=== PATIENT | male | born 1955 | race Caucasian/White ===

== ENCOUNTER 2016-09-12 06:47 | Outpatient (CLI) ==
--- NOTE | 2016-09-13 13:46 | ECHO2D ---
Date of Exam: 09/12/16 Ordering Physician: ERNIE MURO Reason for Echo: CHEST PAIN, SOB M-Mode Normal Adult Results LV Dimensions Normal Adult Results AoV Opening excursions >1.6 >1.6 LVEDD-base- 3.5-5.8 5.0 Ao root dimensions 2.0-3.7 3.3 LVESD-base- 3.1-4.6 L. Atrium dimensions 1.9-3.8 4.5 Post. Wall thickness 0.8-1.1 1.3 IV septum (thickness) 0.7-1.2 1.4 Post. Wall excursion 0.72-1.3 NORMAL Septal motion 0.5 Systolic motion R. Ventricular cavity 1.5-2.0 2.5 LVEF 60% 52% Paradoxical septal wall motion MILD 2-D : ENLARGED LEFT ATRIAL CAVITY AND RIGHT VENTRICLE CAVITY--PARADOXICAL SEPTAL MOTION (MILD), NORMAL VALVES--NO EFFUSION, NO THROMBUS M-MODE: MV: NORMAL AV: NORMAL TV: NORMAL PV: CHAMBER SIZE: ENLARGED LEFT ATRIAL AND RIGHT VENTRICLE CAVITIES WALL MOTION: PARADOXICAL SEPTAL MOTION PERICARDIUM: NORMAL INTERPRETATION: 1. LEFT VENTRICULAR HYPERTROPHY--ENLARGED LEFT ATRIAL CAVITY 2. ENLARGED RIGHT VENTRICLE CAVITY 3. PARADOXICAL SEPTAL MOTION 4. LEFT VENTRICULAR EJECTION FRACTION 52% 5. NORMAL VALVES MTDD
== END 2016-09-12 06:48 | disposition home or self-care (01) ==
LOC: CAR 06:47
PROVIDERS: ATTEND Internal Medicine
DX: R07.9 Chest pain, unspecified (principal); R06.02 Shortness of breath
CPT/HCPCS: 93005; 93010

== ENCOUNTER 2016-09-13 06:54 | Outpatient (CLI) ==
[2016-09-13] MEDS: DOBUTAMINE 250 ML IV ONE (07:51)
[2016-09-13] MEDS: ATROPINE SULFATE PFS ONE (08:37)
--- NOTE | 2016-09-14 11:26 | DOBSTECHO ---
Ordering Physician: ERNIE MURO Date of Test: 09/13/16 Reason for Examination: CHEST PAIN, HYPERTENSION, SOB, CAD, CABG, PACEMAKER Current Medications: ROBAXIN,TRICOR, LISINOPRIL, PLAVIX, METOPROLOL, LOVAZA, OMEPRAZOLE, LIPITOR, NORCO, LASIX, ZOLPIDEM Height: 67" Weight: 235 LBS Target Heart Rate: 135/153 ST Segment Stage Time HR BPM BP mmhg Rhythm +/- Up Down Comments/Symptoms Control Sitting 61 128/70 SR X NONE Dobutamine 250mg/D5W 5cmg/KG/mn 10cmg/KG/mn 3" 74 SR X NONE 15cmg/KG/mn 2" 86 160/78 SR X NONE 20cmg/KG/mn 2" 73 SR X NONE 25cmg/KG/mn 2" 74 188/78 SR X NONE 30cmg/KG/mn 2" 86 176/80 SR X NONE 35cmg/KG/mn 2" 82 184/80 SR X NONE 40cmg/KG/mn 3:32 100 180/74 SR X NONE Time: 3" HR B/P Time: 6" HR B/P Time: 10" HR B/P Recovery 85 162/74 Recovery 70 148/76 Recovery 72 Total Time: 16:32 Maximum Heart Rate Reached: 100 Interpretation: 1. NO EVIDENCE OF ISCHEMIA FROM RESTING HEART RATE 61/BPM TO 100 BPM WITH DOBUTAMINE INFUSION 2. NO CHEST PAIN OR DISCOMFORT 3. HYPOKINETIC/PARADOXICAL SEPTAL AT REST AND WITH DOBUTAMINE INFUSION. MTDD
--- NOTE | 2016-09-14 11:29 | ECHOSTRESS ---
Date of Exam: 09/13/16 Ordering Physician: ERNIE MURO Reason for Echo: CHEST PAIN, SOA, CABG, PACEMAKER, HTN, DOBUTAMINE STRESS-NO ISCHEMIA M-Mode Normal Adult Results LV Dimensions Normal Adult Results AoV Opening excursions >1.6 LVEDD-base- 3.5-5.8 Ao root dimensions 2.0-3.7 LVESD-base- 3.1-4.6 L. Atrium dimensions 1.9-3.8 Post. Wall thickness 0.8-1.1 IV septum (thickness) 0.7-1.2 Post. Wall excursion 0.72-1.3 Septal motion Systolic motion R. Ventricular cavity 1.5-2.0 LVEF 60% Paradoxical septal wall motion 2-D: PARADOXICAL SEPTAL MOTION AT REST--AND WITH DOBUTAMINE INFUSION M-MODE: MV: AV: TV: PV: CHAMBER SIZE: WALL MOTION: PARADOXICAL SEPTAL MOTION AT REST--AND WITH DOBUTAMINE INFUSION PERICARDIUM: INTERPRETATION: 1. PARADOXICAL SEPTAL MOTION AT REST--AND WITH DOBUTAMINE INFUSION MTDD
== END 2016-09-13 06:55 | disposition home or self-care (01) ==
LOC: CAR 06:54
PROVIDERS: ATTEND Internal Medicine
DX: R07.9 Chest pain, unspecified (principal); R06.02 Shortness of breath